=== PATIENT | female | born 1955 | race Caucasian/White ===

== ENCOUNTER 2017-07-01 18:15 | Observation (INO) | payer BC ==
--- NOTE | ~2017-07-01 | HEMODYNAMI ---
PATIENT:SONJA LOPEZ MEDICAL RECORD: [id number] : 53 LOCATION:[address] [id number] ADMISSION DATE: 07/01/17 Generatedon:07/02/201713:16 Patient name: SONJA LOPEZ Patient #: [id number] SSN: : 1955 Date of study: 07/02/2017 Page: Of Hemodynamic Procedure Report Patient Data Patient Demographics Procedure consent was obtained First Name: SONJA Gender: Female Last Name: JESSICA : 1955 Middle Initial: SPRING Age: 62 year(s) Patient #: [id number] Race: Unknown Additional ID: [id number] Contact details Address: [address] [place] [address] State: [place] City: [place] Zip code: [address] Admission Admission Data Admission Date: 07/01/2017 Admission Time: 19:54 Room #: D.2127 Lab Results Lab Result Date: 07/02/2017 Lab Result Time: 0:00 Biochemistry Name Units Result Min Max BUN mg/dl 18 --(---*)-- 7 18 Creatinine mg/dl 1.1 --(--*-)-- 0.6 1.3 CBC Name Units Result Min Max Hemoglobin g/dl 14.2 --(*---)-- 13.5 17.5 Procedure Procedure Types Cath Procedure Diagnostic Procedure [facility] w/Coronaries Miscellaneous Procedures Moderate Sedation up to 15 minutes Peripheral Cath Diagnostic Procedure Cath Peripheral Four Vessel Arteriogram Procedure Description Procedure Date Procedure Date: 07/02/2017 Procedure Start Time: 13:02 Procedure End Time: 13:16 Procedure Staff Name Function Justus Clemente MD Performing Physician Carolyn Boudreaux RT Scrub Che Blanco RN Nurse Reinaldo Sharma RT Monitor Procedure Data Cath Procedure Fluoroscopy Diagnostic fluoroscopy Total fluoroscopy Time: 2 time: 2 min min Diagnostic fluoroscopy Total fluoroscopy dose: 359 dose: 359 mGy mGy Contrast Material Contrast Material Type Amount (ml) Isovue 300 94 Entry Location Entry Primary Successful Side Size Upsize Upsize Entry Closure Succes sful Closure Location (Fr) 1 (Fr) 2 (Fr) Remarks Device Remarks Femoral Right 5 Fr Exoseal artery Estimated blood loss: 5 ml Diagnostic catheters Device Type Used For End Catheter Placement Cordis 5Fr Pigtail Procedure Catheter (MP) Cordis 5Fr JL 4.0 Procedure Catheter (MP) Cordis 5Fr 3DRC Catheter Procedure (MP) Procedure Complications No complications Procedure Medications Medication Administration Route Dosage Oxygen NC 2 l/min Lidocaine 2% added to field 20 Heparin Flush Bag added to field 2 bags (1000units/500ml NS) 0.9% NaCl I.V. 100 ml/hr Benadryl I.V. 50 mg Versed I.V. 1 mg Fentanyl I.V. 50 mcg Versed I.V. 1 mg Fentanyl I.V. 50 mcg Hemodynamics Rest HGB: 14.2 (g/dl) Heart Rate: 71 (bpm) Pressure Samples Time Site Value (mmHg) Purpose Heart Use Rate(bpm) 13:04 LV 63/22,36 Snapshot 75 Snapshots Pre Cath Intra NCS Post Cath Vital Signs Time Heart Resp SPO2 etCO2 NIBP Rhythm Pain Sedation Rate (ipm) (%) (mmHg) (mmHg) Status Level (bpm) 12:51:25 70 15 97 5.3 132/80(98) NSR 0 (11) 10(A) , No pain 12:56:19 70 16 96 12.9 139/80(96) NSR 0 (11) 10(A) , No pain 13:01:15 70 18 97 0 131/78(99) NSR 0 (11) 10(A) , No pain 13:06:09 71 17 95 0 120/66(95) NSR 0 (11) 9(A) , No pain 13:11:04 70 16 95 0 109/62(86) NSR 0 (11) 10(A) , No pain 13:15:55 69 9 96 44 121/70(89) NSR 0 (11) 10(A) , No pain Medications Time Medication Route Dose Verified Delivered Reason Notes Effe ctiveness by by 12:58:27 Oxygen NC 2 Justus Bolton used for l/min Bryn Blanco labor and delivery nurse 12:58:35 Lidocaine 2% added 20ml Justus Jerome for local to vial Bryn Clemente MD anesthetic field 12:58:42 Heparin Flush added 2 Justus Justus used for Bag to bags Bryn Clemente MD procedure (1000units/500ml field NS) 12:58:53 0.9% NaCl I.V. 100 Justus Aguilarkylee Per ml/hr Bryn Blanco RN physician 12:59:03 Benadryl I.V. 50 mg Justus Buffie used for Bryn Blanco RN procedure 13:03:26 Versed I.V. 1 mg Justus Buffie for Bryn Blanco RN sedation 13:03:32 Fentanyl I.V. 50 Justus Buffie for mcg Bryn Blanco RN sedation 13:09:06 Versed I.V. 1 mg Justus Buffie for Bryn Blanco RN sedation 13:09:10 Fentanyl I.V. 50 Justus Buffie for mcg Bryn Blanco RN sedation Procedure Log Time Note 12:32:19 Fede Velez RT(R) sent for patient. Start room use. 12:32:20 Time tracking: Regular hours 12:32:24 Plan of Care:Hemodynamics will remain stable., Cardiac rhythm will remain stable., Comfort level will be maintained., Respiratory function will remain adequate., Patient/ family verbilizes understanding of procedure., Procedure tolerated without complication., Recovers from procedure without complications.. 12:34:06 H&P Date Dictated: 07/01/2017 Within 30 days and on chart., H&P Addendum completed by physician on day of procedure. (MUST COMPLETE FOR ALL OUTPATIENTS). 12:34:53 Lab Result : BUN 18 mg/dl 12:34:53 Lab Result : Hemoglobin 14.2 g/dl 12:34:53 Lab Result : Creatinine 1.1 mg/dl 12:46:21 Patient received from Med II to CCL 1 Alert and oriented. Tansferred to table in Supine position. 12:46:23 Warm blankets applied, and idris hugger turned on for patient comfort. 12:46:24 Correct patient and procedure confirmed by team. 12:46:24 ECG and BP/O2 sat monitors applied to patient. 12:46:25 Correct patient and procedure confirmed by team. 12:46:29 Signed procedure consent form obtained from patient. 12:50:17 Vital chart was started 12:50:27 Baseline sample Acquired. 12:50:34 Full Disclosure recording started 12:50:35 Pre-procedure instructions explained to patient. 12:50:36 Pre-op teaching completed and patient verbalized understanding. 12:50:37 Family unavailable. 12:50:39 Patient NPO since Midnight. 12:50:41 Is the patient allergic to Iodine/contrast media? No. 12:55:12 Is patient on blood thinner?No 12:55:13 Patient diabetic? No. 12:55:27 Previous problem with sedation/anesthesia? No ? 12:55:27 Snore? Yes 12:55:29 Sleep apnea? No 12:55:31 Deviated septum? No 12:55:32 Sticks out tongue? Yes 12:55:33 Opens mouth fully? Yes 12:55:35 Airway obstruction? No ? 12:55:39 Dentures? No ? 12:55:45 Pre procedure: right dorsailis pedis pulse 2+ Normal; easily identifiable; not easily obliterated 12:55:47 Patient pain scale 0/10 ?. 12:55:51 IV patent on arrival in right antecubital with 0.9% NaCl at [facility]. 12:55:54 Lab results completed and on chart. 12:55:56 Right groin area was prepped with chlora-prep and draped in sterile fashion 12:55:58 Alarms reviewed by R. N. 12:55:58 Sharps counted by scrub and verified by R.N. 12:56:00 Use device set Femoral Dx 12:56:01 Tegaderm 4 x 4 opened to sterile field. 12:56:02 Acist Manifold opened to sterile field. 12:56:03 Acist Hand Control opened to sterile field. 12:56:04 Acist Syringe opened to sterile field. 12:56:04 Bag Decanter opened to sterile field. 12:56:05 Medline Cath Pack opened to sterile field. 12:56:05 Terumo 5Fr [place] Sheath opened to sterile field. 12:56:06 St Chris 260cm J .035 wire opened to sterile field. 12:56:07 Diagnostic Infinity 5Fr Multipack catheter opened to sterile field. 12:56:18 Baseline sample Acquired. 12:56:27 Rhythm: paced 12:58:27 Oxygen 2 l/min NC was administered by Che Blanco RN; used for procedure; 12:58:35 Lidocaine 2% 20ml vial added to field was administered by Justus Clemente MD; for local anesthetic; 12:58:42 Heparin Flush Bag (1000units/500ml NS) 2 bags added to field was administered by Justus Clemente MD; used for procedure; 12:58:53 0.9% NaCl 100 ml/hr I.V. was administered by Che Blanco RN; Per physician; 12:59:03 Benadryl 50 mg I.V. was administered by Che Blanco RN; used for procedure; 13::46 Physician arrived 13::46 --------ALL STOP TIME OUT------ 13::46 Final Timeout: patient, procedure, and site verified with staff and physician. All members of the team are in agreement. 13:02:48 Right groin site verified by team. 13:02:50 Physical assessment completed. ASA score P 2 - A patient with mild systemic disease as per Justus Clemente MD. 13:02:52 Sedation plan: IV Moderate Sedation Versed, Fentanyl 13:02:55 Procedure started. 13:02:59 Local anesthetic to right femoral artery with Lidocaine 2% by Justus Clemnete MD.INITIAL ACCESS ONLY 13:03:06 A 5 Fr sheath was inserted into the Right Femoral artery 13:03:17 Zero performed for pressure channel P1 13:03:26 Versed 1 mg I.V. was administered by Che Blanco RN; for sedation; 13:03:32 Fentanyl 50 mcg I.V. was administered by Che Blanco RN; for sedation; 13:03:34 A Cordis 5Fr Pigtail Catheter (MP) was advanced over the wire and used for Procedure. 13:04:16 LV angiography performed. 13:04:16 LV gram done using POZO 13:04:20 Injector settings: Ml/sec: 10, Volume: 20, 13:04:29 Catheter exchanged over wire. 13:04:35 A Cordis 5Fr JL 4.0 Catheter (MP) was advanced over the wire and used for Procedure. 13:05:10 LCA angiography performed. 13:05:57 Catheter exchanged over wire. 13:06:05 A Cordis 5Fr 3DRC Catheter (MP) was advanced over the wire and used for Procedure. 13:06:59 RCA angiography performed. 13:07:31 Right carotid angiography performed. 13:08:07 Right subclavian angiography performed 13:08:51 Left carotid angiography performed. 13:09:06 Versed 1 mg I.V. was administered by Che Blanco RN; for sedation; 13:09:10 Fentanyl 50 mcg I.V. was administered by Che Blanco RN; for sedation; 13:09:15 Catheter removed. 13:09:20 Cordis 5Fr Exoseal opened to sterile field. 13:09:33 Sheath removed intact; hemostasis achieved with Exoseal to the Right Femoral artery. 13:10:06 Procedure ended.(Physican Out) 13:11:23 Fluoroscopy time 02.00 minutes. 13:11:56 Fluoroscopy dose: 359 mGy 13:11:56 Flurop Dose total: 359 13:11:59 Contrast amount:Isovue 300 94ml. 13:12:00 Sharps counted by scrub and verified by R.N. 13:12:04 Insertion/operative site no bleeding no hematoma. 13:12:07 Post-op/insertion site Right Femoral artery dressed using a 4 x 4 and Tegaderm. 13:12:11 Post right femoral artery:stable, soft, clean and dry 13:12:12 Post Procedure Pulses reassessed and unchanged 13:12:18 Post-procedure physical assessment completed. ASA score P 2 - A patient with mild systemic disease as per Justus Clemente MD. 13:12:20 Post procedure rhythm: unchanged. 13:12:22 Estimated blood loss: 5 ml 13:12:23 Post procedure instruction explained to patient.Patient verbalizes understanding. 13:12:24 Patient needs reinforcement of post procedure teaching. 13:13:16 Procedure type changed to Cath procedure, Diagnostic procedure, LHC, LHC w/Coronaries, Miscellaneous Procedures, Moderate Sedation up to 15 minutes, Peripheral Cath Diagnostic Procedure, Cath Peripheral, Four Vessel Arteriogram 13:13:35 IV Extension Set opened to sterile field. 13:15:48 Procedure and supply charges have been captured, reviewed, submitted and are correct. 13:15:51 Procedure Complication : No complications 13:15:53 Vital chart was stopped 13:15:53 See physician's report for complete and final results. 13:15:55 Report given to PCU. 13:16:04 Patient transfered to PCU with Stretcher. 13:16:06 Procedure ended. 13:16:06 Full Disclosure recording stopped 13:16:13 End room use (Document Last) Device Usage Item Name Manufacture Quantity Catalog Hospital Part Current Minimal Lo t# / Number Charge Number Stock Stock Serial# Code Tegaderm 4 3M 1 [id number] 769077 570604 5 x 4 Acist Acist 1 00384 941921 029596 756832 5 Manifold [employer] Inc Acist Hand Acist 1 21416 733784 115964 676753 5 Control [employer] Inc Acist Acist 1 99628 664241 038173 474638 20 Syringe Medical [employer] Inc Bag Microtek 1 2002S 495522 57671 141261 5 Decanter [employer] Inc. Medline Cardinal 1 [id number] 214197 30611 338675 5 Cath Pack Health Terumo 5Fr Terumo 1 [id number] 626185 584709 156010 [address] [place] [address] Chris 1 246098 736054 622340 287450 30 260cm J .035 wire Diagnostic Cardinal 1 [id number] 503676 95132 089307 30 Infinity Health 5Fr Multipack catheter Cordis 5Fr Cardinal 1 [id number] 5 Pigtail Health Catheter (MP) Cordis 5Fr Cardinal 1 344375 5 JL 4.0 Health Catheter (MP) Cordis 5Fr Cardinal 1 735048 5 3DRC Health Catheter (MP) Cordis 5Fr Cardinal 1 EX500 372641 557605 746136 10 [facility] IV Hospira 1 47516-75 204814 14083 840780 5 Extension Set Signature Audit [place] Stage Time Signature Unsigned Intra-Procedure 07/02/2017 Reinaldo Sharma 1:16:43 PM RT(R) Signatures Monitor : Reinaldo Sharma RT Signature : Date : Time : [facility] [address] [place] [address]
[~2017-07-01 18:15] MED LIST: ALDACTONE25 MG PO; ASPIRIN325 MG PO; BENADRYL50 MG PO; COREG25 MG PO; DULCOLAX5 MG PO; IBUPROFEN800 MG PO; LANOXIN125 MCG PO; LASIX40 MG PO; LEVAQUIN750 MG PO; LISINOPRIL2.5 MG PO; PAROXETINE HCL10 MG PO; SYNTHROID112 MCG PO; ZITHROMAX500 MG PO; ZYRTEC10 MG PO
[2017-07-01 18:44] LABS: BASOPHILS 0.2 % (0-2); EOSINOPHILS 1.8 % (0-7); HEMATOCRIT 43.7 % (36.0-48.0); HEMOGLOBIN 14.2 g/dL (12-16); IMMATURE GRANULOCYTES 0.4 % (0-5); LYMPHOCYTES 20.8 % (15-50); MCH 30.3 pg (26.0-34.0); MCHC 32.5 g/dL (31.0-37.0); MCV 93.2 fL (80.0-100.0); MEAN PLATELET VOLUME 9.5 fL (7.4-10.4); MONOCYTES 5.4 % (2-11); NEUTROPHILS 71.4 % (40-80); PLATELET COUNT 216 10x3/uL (130-400); RBC 4.69 10x6/uL (4.00-5.40); RDW 14.1 % (11.5-14.5); WBC 10.2 10x3/uL (4.8-10.8)
[2017-07-01 18:58] LABS: ALBUMIN 3.9 g/dL (3.4-5.0); ALKALINE PHOSPHATASE 81 U/L (46-116); ALT (SGPT) 27 U/L (10-68); CALC OSMOLALITY 283 mosm/kg (275-300); CALCIUM 9.5 mg/dL (8.5-10.1); CARBON DIOXIDE 30.7 mmol/L (21.0-32.0); CHLORIDE - SERUM 101 mmol/L (98-107); CREATININE - SERUM 1.1 mg/dL (0.6-1.3); GLUCOSE 116 mg/dL (74-106); POTASSIUM - SERUM 3.7 mmol/L (3.5-5.1); PROTEIN - SERUM 7.4 g/dL (6.4-8.2); SODIUM 141 mmol/L (136-145); UREA NITROGEN 18 mg/dL (7-18); eGFR NON AFRICAN AMERICAN 53 mL/min (90-120)
[2017-07-01 19:09] LABS: CHOL - HDL RATIO 5.4 ratio (2.3-4.1); CHOLESTEROL, TOTAL 211 mg/dL (0-200); CKMB 0.8 U/L (0.0-3.6); CREATINE KINASE 128 UL (21-215); HDL CHOLESTEROL 39 mg/dL (32-96); LDL CHOLESTEROL 148 mg/dL (0-100); LDL-HDL RATIO 3.8 ratio (1.5-3.5); TRIGLYCERIDE 120 mg/dL (30-200); TROPONIN-I < 0.017 ng/mL (0.000-0.060)
--- NOTE | 2017-07-01 20:53 | NUR ---
ADMIT TO ROOM 2127 FROM ER. ALERT/ORIENTED. ACCOMPANIED BY SPOUSE. ADMISSION HISTORY AND ASSESSMENT COMPLETED. HOME MEDS UPDATED AND REVIEWED. PLAN OF CARE INITIATED.
[2017-07-02 00:44] VITALS: BP 97/51
--- NOTE | 2017-07-02 01:02 | NUR ---
CARDIAC ENZYMES DRAWN PER LAB.
[2017-07-02 01:39] LABS: CKMB 0.4 U/L (0.0-3.6); CREATINE KINASE 90 UL (21-215); TROPONIN-I < 0.017 ng/mL (0.000-0.060)
[2017-07-02 02:06] VITALS: BP 97/51; BMI 38.8
--- NOTE | 2017-07-02 03:26 | NUR ---
PT RESTING IN BED. TURNED REGULATORY ADMINISTRATOR LIGHT ACCIDENTALLY. DENIES PAIN OR DISCOMFORT. SR PER TELEMETRY. NPO UNTIL SEEN BY SUPERINTENDENT RENTING MANAGING IN AM. CPOC.
[2017-07-02 05:43] VITALS: BP 101/48
[2017-07-02 06:45] LABS: CKMB 0.3 U/L (0.0-3.6); CREATINE KINASE 89 UL (21-215); TROPONIN-I < 0.017 ng/mL (0.000-0.060)
--- NOTE | 2017-07-02 07:30 | NUR ---
REPORT RECEIVED. RR EVEN AND UNALBORED. PT DENIES NEEDS AT THIS TIME. ASSESSMENT PERFORMED, WILL CTM.
[2017-07-02 08:00] VITALS: BP 89/46
--- NOTE | 2017-07-02 09:03 | NUR ---
PTS BP WAS LOW THIS MORNING. PT REPORTS THAT THIS IS NOT UNUSUAL FOR HER. RECHECKED BP AND IT IS CURRENTLY 100/59. WILL CTM.
[2017-07-02 12:16] VITALS: BP 106/51
--- NOTE | 2017-07-02 12:31 | NUR ---
PT WILL BE GOING FOR HEART CATH TODAY. PRE-OP CALLED, BUT THERE WAS NO ORDERS IN CHART. CALLED CHANGE ROOM ATTENDANT EXPLAINING THIS. CHANGE ROOM ATTENDANT PERSONEL AT BEDSIDE OBTAINING CONSENT. WILL CTM.
[2017-07-02 13:00] LABS: CKMB 0.4 U/L (0.0-3.6); CREATINE KINASE 76 UL (21-215)
[2017-07-02 13:02] LABS: TROPONIN-I < 0.017 ng/mL (0.000-0.060)
--- NOTE | 2017-07-02 13:20 | NUR ---
PT RECIEVED TO ROOM FROM HEART CATH. RR EVEN AND UNLABORED, VSS. PT REQUESTED TO CALL HER FROM PERSONAL PHONE. CALLED HER ON PT PHONE IN PTS ROOM. RIGHT GROIN SITE CDI, PEDAL PULSE +2. PT IS IN AND OUT OF SLEEP, EASY TO AROUSE. WILL CTM.
--- NOTE | 2017-07-02 15:15 | NUR ---
SPOKE TO DR. PHILIPPE REGARDING PT REQUEST TO HAVE PACEMAKER READ. DR. PHILIPPE SAID HE WOULD ORDER TO HAVE IT READ. WILL D/C PT AFTER READING IS COMPELTE.
[2017-07-02 15:32] VITALS: BP 124/47
--- NOTE | 2017-07-02 17:05 | NUR ---
PT D/C. DISCHARGE INSTRUCTIONS PROVIDED, PT VERBLAIZED UNDERSTANDING REGARDING POST HEART CATH INSTRUCTIONS. PT DENIES FURTHER QUESTIONS. TELE REMOVED AND RETURNED TO BRICK HANDLER, IV CATHETER REMOVED WITH CATHETER TIP INTACT. PT VOIDED PRIOR TO D/C. FAMILY IN ROOM ASSISTING PT TO GET DRESSED, WILL CALL WHEN READY TO BE D/C VIA WHEELCHAIR. WILL BE GOING HOME WITH FAMILY MEMEBER IN PERSONAL VEHICLE.
--- NOTE | 2017-07-13 16:56 | OP ---
PATIENT NAME: SONJA LOPEZ MEDICAL RECORD: [id number] :53 LOCATION:D.M2 D.2127 ADMISSION DATE:07/01/17 SURGEON: MARCIA PHILIPPE MD DATE OF OPERATION: 07/02/2017 PROCEDURES: 1. Left heart catheterization. 2. Selective coronary angiography. 3. Left ventriculogram. 4. Four-vessel carotid and vertebral angiography. INDICATION: Cardiomyopathy, chest pain, and syncope. PROCEDURE: After informed consent was obtained and after a detailed explanation of the risks, benefits as well as alternative therapies, the patient elected to proceed with angiogram. The right femoral area was prepped and draped in normal sterile fashion. The right femoral artery was cannulated via modified Seldinger technique with placement of 5-Cypriot sheath. All catheters exchanged through this sheath. FINDINGS: CAROTIDS: There was a subselection of each subclavian as well as the left carotid. RIGHT SIDE: The common internal and external carotids have mild irregularities, but no flow-limiting stenosis. Vertebral arteries devoid of disease. LEFT SYSTEM: The common internal and external carotids are devoid of disease. Vertebral artery is small, but devoid of disease. Left ventriculogram was performed in standard 30-degree POZO view reveals global hypokinesis throughout all segments. Overall ejection fraction is 30-35%. SELECTIVE CORONARY ANGIOGRAPHY: Left main, left anterior descending, left circumflex, right coronary artery are all smooth-walled vessels with no angiographic evidence of coronary artery disease. OVERALL IMPRESSION: 1. No angiographic evidence of coronary artery disease. 2. No significant carotid vascular disease. 3. Nonischemic cardiomyopathy. Standard medical management and treatment of cardiomyopathy. TRANSINT:[id number] Voice Confirmation ID: [id number] DOCUMENT ID: [id number] MARCIA PHILIPPE MD at 1656 CC: [id number] DICTATION DATE: 07/02/17 1313 COMMISSIONER PUBLIC WORKS: 07/02/17 1412 DIS IN 07/02/17 [place] [id number] [place] [id number]
== END 2017-07-02 17:21 | disposition home or self-care (01) ==
LOC: D.ER 18:15 → D.M2 19:54 → OBSVTIME 19:54 → D.M2 19:54
PROVIDERS: Emergency Medicine; ADMIT Internal Medicine Interventional Cardiology
DX: I42.9 Cardiomyopathy, unspecified (principal); R55 Syncope and collapse; I50.9 Heart failure, unspecified; Z95.0 Presence of cardiac pacemaker; Z86.73 Personal history of transient ischemic attack (TIA), and cerebral infarction without residual deficits

== ENCOUNTER → 2019-08-19 09:00 | Outpatient (CLI) | payer MEDICARE | END | disposition home or self-care (01) | LOC: D.MAMMO 09:00 | PROVIDERS: ATTEND Family Medicine | DX: Z12.31 Encounter for screening mammogram for malignant neoplasm of breast (principal) ==

== ENCOUNTER → 2019-10-09 08:45 | Outpatient (CLI) | payer MEDICARE | END | disposition home or self-care (01) | LOC: D.HCCECHO 08:45 | PROVIDERS: ATTEND Internal Medicine Cardiovascular Disease | DX: I42.9 Cardiomyopathy, unspecified (principal) ==

== ENCOUNTER 2021-01-13 11:30 | Outpatient (CLI) | payer OTHER | END 2021-01-13 23:59 | disposition home or self-care (01) | LOC: D.HCCECHO 11:30 | PROVIDERS: ATTEND Internal Medicine Cardiovascular Disease | DX: I42.9 Cardiomyopathy, unspecified (principal) ==